=== PATIENT | male | born 1965 | race Caucasian/White ===

== ENCOUNTER 2017-05-24 06:00 | Inpatient (IN) | payer MEDICARE ==
[2017-05-24 06:25] LABS: BASO # 0.1 x10^3/uL (0.0-0.2); BASO % 1 % (0-3); EOS # 0.1 x10^3/uL (0.0-0.7); EOS % 1 % (0-3); HEMATOCRIT 43.7 % (39.0-53.0); HEMOGLOBIN 15.4 g/dL (13.0-17.5); LYMPH # 3.7 x10^3/uL (1.0-4.8); LYMPH % 21 % (24-48); MEAN CORPUSCULAR HEMOGLOBIN 33 pg (25-35); MEAN CORPUSCULAR HGB CONC 35 g/dL (31-37); MEAN CORPUSCULAR VOLUME 93 fL (79-100); MONO # 1.2 x10^3/uL (0.0-1.1); MONO % 7 % (0-9); NEUT # 12.7 x10^3uL (1.8-7.7); NEUT % 71 % (31-73); PLATELET COUNT 421 x10^3/uL (140-400); RED BLOOD COUNT 4.68 x10^6/uL (4.30-5.70); RED CELL DISTRIBUTION WIDTH 12.3 % (11.5-14.5); WHITE BLOOD COUNT 17.8 x10^3/uL (4.0-11.0)
[2017-05-24 06:33] LABS: ANION GAP 15 (6-14); BLOOD UREA NITROGEN 21 mg/dL (8-26); BUN/CREATININE RATIO 14 (6-20); CALCIUM 11.4 mg/dL (8.5-10.1); CARBON DIOXIDE 26 mmol/L (21-32); CHLORIDE 98 mmol/L (98-107); CREATININE 1.5 mg/dL (0.7-1.3); GFR 49.3; GLUCOSE 186 mg/dL (70-99); POTASSIUM 3.5 mmol/L (3.5-5.1); SODIUM 139 mmol/L (136-145)
[2017-05-24 06:35] LABS: ADD MAN DIFF? YES
[2017-05-24] MEDS: IV NORMAL SALINE 1000ML BAG 1,000 ML IV ×4 (06:37→08:16)
[2017-05-24 06:39] LABS: ALBUMIN 3.8 g/dL (3.4-5.0); ALBUMIN/GLOBULIN RATIO 1.1 (1.0-1.7); ALK PHOS 93 U/L (46-116); ALT (SGPT) 30 U/L (16-63); AST (SGOT) 21 U/L (15-37); LIPASE 125 U/L (73-393); TOTAL BILIRUBIN 0.5 mg/dL (0.2-1.0); TOTAL PROTEIN 7.4 g/dL (6.4-8.2)
[2017-05-24] MEDS: ONDANSETRON PF 4 MG/2 ML VIAL. IV ×2 (06:41→07:42)
[2017-05-24] MEDS ORDERED: CONTRAST GIVEN MC (06:45)
[2017-05-24 07:09] LABS: % EOS 1 % (0-5); % LYMPHS 21 % (24-48); % MONOS 4 % (0-10); % SEGS 74 % (35-66)
[2017-05-24 07:10] LABS: PLT ESTIMATE INCREASED (ADEQUATE)
[2017-05-24] MEDS: IOHEXOL 300 MG/ML 100ML VIAL. IV (07:13)
[2017-05-24 07:15] LABS: BILIRUBIN,URINE NEGATIVE (NEG); CLARITY,URINE CLOUDY; COLOR,URINE YELLOW; GLUCOSE,URINE NEGATIVE (NEG); NITRITE,URINE NEGATIVE (NEG); PH,URINE 8.5; PROTEIN,URINE NEGATIVE (NEG-TRACE); UROBILINOGEN,URINE 0.2 mg/dL (0.2 mg/dL)
[2017-05-24 07:30] LABS: AMORPHOUS SEDIMENT,UR PRESENT /HPF; SPERM,URINE PRESENT /HPF; SQUAMOUS EPITHELIAL CELL,UR FEW /LPF
[2017-05-24] MEDS ORDERED: ONDANSETRON PF 4 MG/2 ML VIAL. IV ×2 (07:30→10:15)
[2017-05-24 07:31] LABS: BACTERIA,URINE 0 /HPF (0-FEW); RBC,URINE 0 /HPF (0-2); WBC,URINE 0 /HPF (0-4)
[2017-05-24] MEDS: KETOROLAC 30 MG/ML INJ. IV (07:43)
[2017-05-24] MEDS: MORPHINE SULFATE 4 MG/ML DISP.SYRIN. IV/SQ (07:44)
[2017-05-24 08:21] LABS: BASE EXCESS ABG 2 mmol/L (-3-3); HCO3 ABG 19 mmol/L (21-28); PO2 ABG 96 mmHg (75-108); SAT O2 ABG 98 % (92-99)
[2017-05-24 08:24] LABS: PH ABG 7.68 (7.35-7.45)
[2017-05-24 08:25] LABS: PCO2 ABG 17 mmHg (35-46)
[2017-05-24 08:33] LABS: LACTIC ACID 5.7 mmol/L (0.4-2.0)
[2017-05-24] MEDS ORDERED: PIP/TAZO PER PHARMACY MC (09:00)
[2017-05-24] MEDS: PIPERACILLIN/TAZOBACTAM 3.375 GM in IV NORMAL SALINE 50ML 50 ML IV ×3 (09:21→16:52)
[2017-05-24 09:23] LABS: BASE EXCESS ABG 0 mmol/L (-3-3); HCO3 ABG 16 mmol/L (21-28); PO2 ABG 76 mmHg (75-108); SAT O2 ABG 97 % (92-99)
[2017-05-24 09:25] LABS: PCO2 ABG < 15 mmHg (35-46); PH ABG > 7.70 (7.35-7.45)
[2017-05-24 09:32] LABS: ANION GAP 14 (6-14); BLOOD UREA NITROGEN 19 mg/dL (8-26); CALCIUM 10.3 mg/dL (8.5-10.1); CARBON DIOXIDE 23 mmol/L (21-32); CHLORIDE 103 mmol/L (98-107); CREATININE 1.3 mg/dL (0.7-1.3); GFR 58.2; GLUCOSE 172 mg/dL (70-99); POTASSIUM 3.6 mmol/L (3.5-5.1); SODIUM 140 mmol/L (136-145)
[2017-05-24 09:41] LABS: TROPONINI 1.545 ng/mL (0.000-0.055)
[2017-05-24 09:49] LABS: CKMB INDEX 5.8 % (0-4); CKMB MASS 6.1 ng/mL (0.0-3.6); CREATINE KINASE 105 U/L (39-308)
[2017-05-24 09:49] LABS: NT-PRO BNP 156 pg/mL (0-124)
[2017-05-24 10:03] LABS: BARBITURATES NEG (NEG); BENZODIAZEPINES NEG (NEG); CANNABINOIDS POS (NEG); COCAINE NEG (NEG); METHADONE NEG (NEG); OPIATES NEG (NEG); PHENCYCLIDINE NEG (NEG)
[2017-05-24 10:04] LABS: ACETAMIN < 2 mcg/ml (10-30); AMPHETAMINE/METHAMPHETAMINE NEG (NEG); ETHANOL < 10 mg/dL (0-10); ETHANOL, URINE NEG (NEG); SALIC 3.4 mg/dL (2.8-20.0)
[2017-05-24] MEDS: VANCOMYCIN 2 GM in IV DEXTROSE 5% 500 ML IV (10:15)
[2017-05-24] MEDS: VANCOMYCIN PER PHARMACY MC (10:48)
[2017-05-24 11:22] LABS: PROTHROMBIN TIME PATIENT 12.2 SEC (11.7-14.0)
[2017-05-24] MEDS: HEPARIN for IV BOLUS 10,000 UNIT/10 ML VIAL. IV (11:40)
[2017-05-24] MEDS: HEPARIN 25,000UTS/500ML PREMIX 500 ML IV (12:00)
[2017-05-24 13:42] LABS: TROPONINI 5.031 ng/mL (0.000-0.055)
[2017-05-24 13:43] LABS: LACTIC ACID 3.6 mmol/L (0.4-2.0)
[2017-05-24] MEDS ORDERED: PROCHLORPERAZINE 10 MG/2 ML VIAL. IV (13:45)
[2017-05-24] MEDS: MORPHINE SULFATE 4 MG/ML DISP.SYRIN. IV ×2 (13:48→22:46)
[2017-05-24] MEDS: PROCHLORPERAZINE 10 MG/2 ML VIAL. IV ×2 (13:52→22:46)
[2017-05-24] MEDS: FINASTERIDE 5 MG TABLET. PO (14:04)
[2017-05-24] MEDS: TAMSULOSIN 0.4 MG CAP.ER.24H. PO (14:05)
[2017-05-24] MEDS: PANTOPRAZOLE 40 MG TABLET.DR. PO (14:06)
[2017-05-24] MEDS: DULoxetine HCL 30 MG CAPSULE.DR PO (14:07)
[2017-05-24] MEDS: ASPIRIN ENTERIC COATED 81 MG TABLET.DR. PO (14:08)
[2017-05-24] MEDS: hydroCHLOROthiazide 25 MG TABLET PO (14:08)
[2017-05-24] MEDS: NITROGLYCERIN PREMIX 250 ML IV (16:52)
[2017-05-24 18:26] LABS: UNFRACTIONATED HEPARIN TESTING 0.24 IU/mL (0.30-0.70)
[2017-05-24 18:32] LABS: TROPONINI 8.273 ng/mL (0.000-0.055)
[2017-05-24] MEDS: LACTOBACILLUS RHAMNOSUS GG 1 CAPSULE. PO (21:36)
[2017-05-24] MEDS: ATORVASTATIN CALCIUM 40 MG TABLET. PO (21:37)
[2017-05-24] MEDS: VANCOMYCIN 1.5 GM in IV 1/2 NORMAL SALINE 500 ML IV (21:37)
[2017-05-24 23:13] LABS: MRSA BY PCR Negative (Negative)
[2017-05-25] MEDS: PIPERACILLIN/TAZOBACTAM 3.375 GM in IV NORMAL SALINE 50ML 50 ML IV ×4 (00:17→18:05)
[2017-05-25 01:38] LABS: UNFRACTIONATED HEPARIN TESTING 0.39 IU/mL (0.30-0.70)
[2017-05-25 05:21] LABS: ADD MAN DIFF? NO
[2017-05-25 05:24] LABS: BASO # 0.1 x10^3/uL (0.0-0.2); BASO % 1 % (0-3); EOS # 0.1 x10^3/uL (0.0-0.7); EOS % 1 % (0-3); HEMATOCRIT 38.6 % (39.0-53.0); HEMOGLOBIN 13.4 g/dL (13.0-17.5); LYMPH # 3.3 x10^3/uL (1.0-4.8); LYMPH % 19 % (24-48); MEAN CORPUSCULAR HEMOGLOBIN 32 pg (25-35); MEAN CORPUSCULAR HGB CONC 35 g/dL (31-37); MEAN CORPUSCULAR VOLUME 94 fL (79-100); MONO # 1.3 x10^3/uL (0.0-1.1); MONO % 8 % (0-9); NEUT # 12.8 x10^3uL (1.8-7.7); NEUT % 73 % (31-73); PLATELET COUNT 320 x10^3/uL (140-400); RED BLOOD COUNT 4.12 x10^6/uL (4.30-5.70); RED CELL DISTRIBUTION WIDTH 12.5 % (11.5-14.5); WHITE BLOOD COUNT 17.6 x10^3/uL (4.0-11.0)
[2017-05-25 07:21] LABS: ALBUMIN 2.9 g/dL (3.4-5.0); ALBUMIN/GLOBULIN RATIO 0.9 (1.0-1.7); ALK PHOS 65 U/L (46-116); ALT (SGPT) 28 U/L (16-63); ANION GAP 11 (6-14); AST (SGOT) 61 U/L (15-37); BLOOD UREA NITROGEN 13 mg/dL (8-26); BUN/CREATININE RATIO 13 (6-20); CARBON DIOXIDE 24 mmol/L (21-32); CHLORIDE 105 mmol/L (98-107); CHOLESTEROL 156 mg/dL (0-200); DIRECT BILIRUBIN 0.2 mg/dL (0.0-0.2); GFR 78.8; GLUCOSE 116 mg/dL (70-99); HDLC 42 mg/dL (40-60); LDLC 92 mg/dL (0-100); MAGNESIUM 1.4 mg/dL (1.8-2.4); NON-HDL CHOLESTEROL 114 mg/dL (0-129); SODIUM 140 mmol/L (136-145); TOTAL BILIRUBIN 0.9 mg/dL (0.2-1.0); TOTAL PROTEIN 6.2 g/dL (6.4-8.2); TRIGLYCERIDES 110 mg/dL (0-150); VLDLC 22 mg/dL (0-40)
[2017-05-25 07:26] LABS: CHOLESTEROL/HDL RATIO 3.7
[2017-05-25 07:27] LABS: CALCIUM 7.8 mg/dL (8.5-10.1)
[2017-05-25 07:29] LABS: POTASSIUM 2.6 mmol/L (3.5-5.1)
[2017-05-25] MEDS: HEPARIN 25,000UTS/500ML PREMIX 500 ML IV (07:29)
[2017-05-25 07:38] LABS: UNFRACTIONATED HEPARIN TESTING 0.52 IU/mL (0.30-0.70)
[2017-05-25] MEDS: POTASSIUM CHLORIDE IV (08:37)
[2017-05-25] MEDS: 1/2 NORMAL SALINE IV (08:37)
[2017-05-25] MEDS: hydroCHLOROthiazide 25 MG TABLET PO (09:00)
[2017-05-25] MEDS: PANTOPRAZOLE 40 MG TABLET.DR. PO (09:23)
[2017-05-25] MEDS: POTASSIUM CHLORIDE 20 MEQ TABLET.ER. PO (09:23)
[2017-05-25] MEDS: MAGNESIUM SULFATE 2GM 50 ML IV (09:25)
[2017-05-25] MEDS: MORPHINE SULFATE 4 MG/ML DISP.SYRIN. IV (09:52)
[2017-05-25] MEDS ORDERED: IOHEXOL 300 MG/ML 100ML VIAL. ×2 (10:19→11:05)
[2017-05-25] MEDS ORDERED: LIDOCAINE 2% 20 ML VIAL. ×2 (10:19→10:20)
[2017-05-25] MEDS ORDERED: VERAPAMIL 5 MG/2 ML VIAL. (10:46)
[2017-05-25] MEDS ORDERED: MIDAZOLAM HCL/PF 2 MG/2 ML VIAL. (10:46)
[2017-05-25] MEDS ORDERED: fentaNYL PF VIAL 100 MCG/2 ML VIAL (10:46)
[2017-05-25] MEDS ORDERED: HEPARIN for IV BOLUS 10,000 UNIT/10 ML VIAL. (10:46)
[2017-05-25] MEDS ORDERED: NITROGLYCERIN 200 MCG/2 ML SYRINGE FOR CATH/VASC LAB. ×2 (10:47→11:29)
[2017-05-25] MEDS ORDERED: TIROFIBAN 12.5MG -0.9% NS 250 ML IV ×2 (11:21→18:00)
[2017-05-25] MEDS: TIROFIBAN 12.5MG -0.9% NS 250 ML IV (11:27)
[2017-05-25] MEDS ORDERED: PRASUGREL 10 MG TABLET. (11:48)
[2017-05-25] MEDS: PRASUGREL 10 MG TABLET. PO (11:57)
[2017-05-25] MEDS: HEPARIN for IV BOLUS 10,000 UNIT/10 ML VIAL. IV (12:02)
[2017-05-25] MEDS ORDERED: CONTRAST GIVEN MC (12:15)
[2017-05-25] MEDS: NITROGLYCERIN 200 MCG/2 ML SYRINGE FOR CATH/VASC LAB. IART ×2 (12:16)
[2017-05-25] MEDS: IOHEXOL 300 MG/ML 100ML VIAL. IART (12:16)
[2017-05-25] MEDS: LIDOCAINE 2% 20 ML VIAL. IJ (12:16)
[2017-05-25] MEDS: HEPARIN for IV BOLUS 10,000 UNIT/10 ML VIAL. IART (12:17)
[2017-05-25] MEDS: VERAPAMIL 5 MG/2 ML VIAL. IART (12:17)
[2017-05-25] MEDS: fentaNYL PF VIAL 100 MCG/2 ML VIAL IV (12:18)
[2017-05-25] MEDS: MIDAZOLAM HCL/PF 2 MG/2 ML VIAL. IV (12:18)
[2017-05-25] MEDS: VANCOMYCIN 1.5 GM in IV 1/2 NORMAL SALINE 500 ML IV ×2 (13:22→22:33)
[2017-05-25] MEDS: ASPIRIN ENTERIC COATED 81 MG TABLET.DR. PO (13:23)
[2017-05-25] MEDS: FINASTERIDE 5 MG TABLET. PO (13:23)
[2017-05-25] MEDS: TAMSULOSIN 0.4 MG CAP.ER.24H. PO (13:23)
[2017-05-25] MEDS: DULoxetine HCL 30 MG CAPSULE.DR PO (13:23)
[2017-05-25] MEDS: LACTOBACILLUS RHAMNOSUS GG 1 CAPSULE. PO ×2 (13:23→22:32)
[2017-05-25] MEDS: oxyCODONE/APAP 5/325 1 TAB TABLET PO (20:13)
[2017-05-25] MEDS ORDERED: VANCOMYCIN 1.5 GM in IV 1/2 NORMAL SALINE 500 ML IV (22:00)
[2017-05-25 22:18] LABS: VANC TR 19.1 mcg/mL (10.0-20.0)
[2017-05-25] MEDS: ATORVASTATIN CALCIUM 40 MG TABLET. PO (22:32)
[2017-05-26] MEDS: PIPERACILLIN/TAZOBACTAM 3.375 GM in IV NORMAL SALINE 50ML 50 ML IV ×2 (00:08→05:54)
[2017-05-26] MEDS: oxyCODONE/APAP 5/325 1 TAB TABLET PO ×3 (00:25→10:58)
[2017-05-26] MEDS: VANCOMYCIN PER PHARMACY MC (00:40)
[2017-05-26 04:22] LABS: ADD MAN DIFF? NO
[2017-05-26 05:09] LABS: BASO # 0.1 x10^3/uL (0.0-0.2); BASO % 1 % (0-3); EOS # 0.1 x10^3/uL (0.0-0.7); EOS % 1 % (0-3); HEMOGLOBIN 13.2 g/dL (13.0-17.5); LYMPH # 2.7 x10^3/uL (1.0-4.8); LYMPH % 25 % (24-48); MEAN CORPUSCULAR HEMOGLOBIN 33 pg (25-35); MEAN CORPUSCULAR HGB CONC 35 g/dL (31-37); MEAN CORPUSCULAR VOLUME 96 fL (79-100); MONO # 0.8 x10^3/uL (0.0-1.1); MONO % 7 % (0-9); NEUT # 7.2 x10^3uL (1.8-7.7); NEUT % 66 % (31-73); PLATELET COUNT 296 x10^3/uL (140-400); RED BLOOD COUNT 3.98 x10^6/uL (4.30-5.70); RED CELL DISTRIBUTION WIDTH 11.9 % (11.5-14.5); WHITE BLOOD COUNT 10.9 x10^3/uL (4.0-11.0)
[2017-05-26 05:23] LABS: ANION GAP 7 (6-14); BLOOD UREA NITROGEN 11 mg/dL (8-26); CALCIUM 8.2 mg/dL (8.5-10.1); CARBON DIOXIDE 26 mmol/L (21-32); CHLORIDE 105 mmol/L (98-107); CREATININE 0.9 mg/dL (0.7-1.3); GLUCOSE 92 mg/dL (70-99); MAGNESIUM 1.9 mg/dL (1.8-2.4); SODIUM 138 mmol/L (136-145)
[2017-05-26 05:26] LABS: POTASSIUM 2.8 mmol/L (3.5-5.1)
[2017-05-26] MEDS: POTASSIUM CHLORIDE IV (05:54)
[2017-05-26] MEDS: 1/2 NORMAL SALINE IV (05:54)
[2017-05-26] MEDS: LACTOBACILLUS RHAMNOSUS GG 1 CAPSULE. PO (08:50)
[2017-05-26] MEDS: TAMSULOSIN 0.4 MG CAP.ER.24H. PO (08:50)
[2017-05-26] MEDS: DULoxetine HCL 30 MG CAPSULE.DR PO (08:50)
[2017-05-26] MEDS: FINASTERIDE 5 MG TABLET. PO (08:50)
[2017-05-26] MEDS: ASPIRIN ENTERIC COATED 81 MG TABLET.DR. PO (08:50)
[2017-05-26] MEDS: PANTOPRAZOLE 40 MG TABLET.DR. PO (08:50)
[2017-05-26] MEDS: POTASSIUM CHLORIDE 20 MEQ TABLET.ER. PO ×2 (08:51→12:36)
[2017-05-26] MEDS: PRASUGREL 10 MG TABLET. PO (10:57)
[2017-05-26] MEDS: METOPROLOL TART IMMED RELEASE 25 MG TABLET. PO (10:59)
[2017-05-26 11:27] LABS: ANION GAP 5 (6-14); BLOOD UREA NITROGEN 11 mg/dL (8-26); CALCIUM 8.6 mg/dL (8.5-10.1); CARBON DIOXIDE 26 mmol/L (21-32); CHLORIDE 107 mmol/L (98-107); CREATININE 0.9 mg/dL (0.7-1.3); GLUCOSE 108 mg/dL (70-99); POTASSIUM 3.5 mmol/L (3.5-5.1); SODIUM 138 mmol/L (136-145)
[2017-05-26] MEDS: CLOPIDOGREL BISULFATE 75 MG TABLET PO (15:02)
[2017-05-27] MEDS ORDERED: POTASSIUM CHLORIDE 20 MEQ TABLET.ER. PO (08:00)
== END 2017-05-26 15:20 | disposition home or self-care (01) | DRG 246 ==
LOC: ER 06:00 → 1 WEST ICU 09:00
PROC: 027135Z Dilation of Coronary Artery, Two Arteries with Two Drug-eluting Intraluminal Devices, Percutaneous Approach (ICD-10-PCS; principal; 2017-05-25)
PROC: 4A023N7 Measurement of Cardiac Sampling and Pressure, Left Heart, Percutaneous Approach (ICD-10-PCS; 2017-05-25)
PROC: B2151ZZ Fluoroscopy of Left Heart using Low Osmolar Contrast (ICD-10-PCS; 2017-05-25)
PROC: B2111ZZ Fluoroscopy of Multiple Coronary Arteries using Low Osmolar Contrast (ICD-10-PCS; 2017-05-25)
DX: I21.4 Non-ST elevation (NSTEMI) myocardial infarction (principal); I50.43 Acute on chronic combined systolic (congestive) and diastolic (congestive) heart failure; E87.4 Mixed disorder of acid-base balance; K57.32 Diverticulitis of large intestine without perforation or abscess without bleeding; I11.0 Hypertensive heart disease with heart failure; M19.90 Unspecified osteoarthritis, unspecified site; K21.9 Gastro-esophageal reflux disease without esophagitis; K44.9 Diaphragmatic hernia without obstruction or gangrene; N40.0 Benign prostatic hyperplasia without lower urinary tract symptoms; N43.3 Hydrocele, unspecified; D72.829 Elevated white blood cell count, unspecified; E78.5 Hyperlipidemia, unspecified; E87.6 Hypokalemia; G89.29 Other chronic pain; F41.9 Anxiety disorder, unspecified; I25.10 Atherosclerotic heart disease of native coronary artery without angina pectoris; I25.2 Old myocardial infarction; Z79.82 Long term (current) use of aspirin; Z82.49 Family history of ischemic heart disease and other diseases of the circulatory system; Z95.5 Presence of coronary angioplasty implant and graft
CPT/HCPCS: 36415; 36600; 74177; 76870; 80048; 80053; 80061; 80202; 80307; 80329; 81001; 82248; 82553; 82805; 83605; 83690; 83735; 83880; 84484; 85007; 85025; 85520; 85610; 87040; 87641; 92928; 93005; 93306; 93454; 93571; 93970; 99152; 99153; C1725; C1769; C1874; C1887; C1892; G0480; J0780; J1644; J1885; J2250; J2270; J2405; J2543; J3010; J3370; J3475; J3490; J7030; Q9967

== ENCOUNTER 2017-05-27 04:30 | Emergency (ER) | payer MEDICARE | END 2017-05-27 06:29 | disposition home or self-care (01) | LOC: ER 04:30 | DX: G47.33 Obstructive sleep apnea (adult) (pediatric) (principal); I25.10 Atherosclerotic heart disease of native coronary artery without angina pectoris; I25.2 Old myocardial infarction; Z95.5 Presence of coronary angioplasty implant and graft | CPT/HCPCS: 71046; 99284-25 ==